=== PATIENT | male | born 1955 | race Caucasian/White ===

== ENCOUNTER 2022-06-25 19:20 | Outpatient (REF) | payer MEDICARE, SELFPAY ==
[2022-06-25 19:45] LABS: Basophils Absolute Auto 0.03 K/uL (0.00-0.30); Basophils Percent Auto 0.5 % (0.0-3.0); Eosinophils Absolute Auto 0.24 K/uL (0.00-0.50); Eosinophils Percent Auto 3.8 % (0.0-7.0); Hematocrit 47.3 % (37.0-53.0); Hemoglobin* 15.8 gm/dL (13.5-17.5); Lymphocytes Absolute Auto 1.63 K/uL (0.90-2.90); Mean Corpuscular HGB Conc 33 gm/dL (32-36); Mean Corpuscular Hemoglobin 31 pg (26-34); Mean Corpuscular Volume 94 fL (80-100); Monocytes Percent Auto 7.5 % (0.0-11.0); Neutrophils Percent Auto 62.2 % (42.0-72.0); Platelet Count* 214 K/uL (140-440); RDW Coefficient of Variation % 11.7 % (11.5-15.5); Red Blood Count 5.06 m/uL (4.30-5.90); White Blood Count* 6.27 K/uL (4.50-11.00)
[2022-06-25 19:46] LABS: Slide Review Reflex No
[2022-06-25 20:08] LABS: Albumin* 4.8 g/dL (3.3-5.0)
[2022-06-25 20:10] LABS: Bilirubin Direct* 0.2 mg/dL (0.0-0.5)
[2022-06-25 20:11] LABS: Alanine Aminotransferase* 30 U/L (4-50); Alkaline Phosphatase* 73 U/L (40-150); Aspartate Amino Transferase* 26 U/L (12-35); Total Protein* 7.3 g/dL (6.0-8.3)
[2022-06-27 03:13] LABS: Percent Iron Saturation 56 % (20-50); Total Iron Binding Capacity 328 ug/dL (261-462)
[2022-06-27 03:40] LABS: Iron* 182 ug/dL (49-181)
== END 2022-06-25 19:21 | disposition home or self-care (01) ==
LOC: NPINS 19:20
PROVIDERS: Visit Provider Internal Medicine
DX: Z13.0 Encounter for screening for diseases of the blood and blood-forming organs and certain disorders involving the immune mechanism (principal)
CPT/HCPCS: 80076; 82728; 83540; 83550; 85025